=== PATIENT | male | born 1985 ===

== ENCOUNTER 2020-11-04 21:22 | Emergency (ER) | payer SELFPAY ==
[~2020-11-04] VITALS: Ht 175.3 cm; Wt 87.0 kg
[2020-11-04 21:23] VITALS: BP 139/83
== END 2020-11-05 | disposition left against medical advice (07) ==
LOC: M ED 21:22
DX: Z53.21 Procedure and treatment not carried out due to patient leaving prior to being seen by health care provider (principal)